=== PATIENT | female | born 1990 | race Asian ===

== ENCOUNTER 2016-12-14 20:41 | Emergency (ER) | payer SELFPAY ==
[~2016-12-14] VITALS: Ht 180.3 cm; Wt 93.9 kg
[2016-12-14 20:43] VITALS: BP 125/88
== END 2016-12-14 21:07 | disposition home or self-care (01) ==
LOC: ED 21:01
DX: S61.1 Open wound of thumb with damage to nail (principal); X58.XXXA Exposure to other specified factors, initial encounter; Y93.89 Activity, other specified; Y92.89 Other specified places as the place of occurrence of the external cause; Y99.8 Other external cause status
CPT/HCPCS: 99282

== ENCOUNTER 2017-08-07 13:21 | Emergency (ER) | payer OTHER ==
[~2017-08-07] VITALS: Ht 180.3 cm; Wt 100.8 kg
[2017-08-07 13:28] VITALS: BP 124/81
== END 2017-08-07 14:44 | disposition home or self-care (01) ==
LOC: ED 14:38
DX: B35.3 Tinea pedis (principal)
CPT/HCPCS: 99283

== ENCOUNTER 2018-01-25 22:48 | Emergency (ER) | payer SELFPAY ==
[~2018-01-25] VITALS: Ht 180.3 cm; Wt 101.7 kg
[2018-01-26 00:09] LABS: BASOPHILS # (AUTO) 0.02 x10^3/uL (0-0.1); BASOPHILS % (AUTO) 0 % (0-1); EOSINOPHILS # (AUTO) 0.11 x10^3/uL (0-0.4); EOSINOPHILS % (AUTO) 3 % (1-7); LYMPHOCYTES # (AUTO) 1.44 x10^3/uL (1-3.4); LYMPHOCYTES % (AUTO) 31 % (22-44); MD NO; MEAN CORPUSCULAR HEMOGLOBIN 30.3 pg (27.0-34.8); MEAN CORPUSCULAR HGB CONC 34.3 g/dL (32.4-35.8); MEAN CORPUSCULAR VOLUME 88.5 fL (80-100); MEAN PLATELET VOLUME 8.2 fL (7.4-10.4); MONOCYTES # (AUTO) 0.54 x10^3/uL (0.2-0.8); MONOCYTES % (AUTO) 12 % (2-9); NEUTROPHILS # (AUTO) 2.49 x10^3/uL (1.8-6.8); NEUTROPHILS % (AUTO) 54 % (42-75); PLATELET COUNT 218 x10^3/uL (130-400); RED BLOOD COUNT 4.36 x10^6/uL (3.82-5.3); RED CELL DISTRIBUTION WIDTH 12.9 % (9.6-15.2)
[2018-01-26 00:16] LABS: ALBUMIN 3.4 g/dL (3.4-5.0); ANION GAP 8 mmol/L (5-15); CALCIUM 8.5 mg/dL (8.5-10.1); CHLORIDE 108 mmol/L (98-107); CREATININE 0.96 mg/dL (0.55-1.02)
[2018-01-26 00:21] LABS: TROPONIN I < 0.015 ng/mL (0.000-0.045)
[2018-01-26 00:34] VITALS: BP 113/84
== END 2018-01-26 00:36 | disposition home or self-care (01) ==
LOC: ED 23:21
DX: R07.89 Other chest pain (principal); R55 Syncope and collapse
CPT/HCPCS: 36415; 71046; 80048; 82040; 84484; 84703; 85025; 93005; 99285

== ENCOUNTER 2018-07-03 18:40 | Emergency (ER) | payer SELFPAY ==
[~2018-07-03] VITALS: Ht 180.3 cm; Wt 108.3 kg
[2018-07-03] MEDS ORDERED: ACETAMINOPHEN 325 MG TABLET ONE (19:44)
[2018-07-03] MEDS ORDERED: ACETAMINOPHEN 325 MG TABLET PO ONE (20:00)
[2018-07-03 20:25] VITALS: BP 111/75
[2018-07-03 20:43] LABS: CULTURE INDICATED? YES; MICROSCOPIC INDICATED
== END 2018-07-03 21:14 | disposition home or self-care (01) ==
LOC: ED 20:13
DX: O26.892 Other specified pregnancy related conditions, second trimester (principal); Z3A.27 27 weeks gestation of pregnancy; S39.012A Strain of muscle, fascia and tendon of lower back, initial encounter; E11.40 Type 2 diabetes mellitus with diabetic neuropathy, unspecified; V49.49XA Driver injured in collision with other motor vehicles in traffic accident, initial encounter; Y93.89 Activity, other specified; Y99.8 Other external cause status; Y92.410 Unspecified street and highway as the place of occurrence of the external cause
CPT/HCPCS: 76815; 81001; 87086; 99285

== ENCOUNTER 2020-10-14 21:45 | Emergency (ER) | payer BC, MEDICAID ==
[~2020-10-14] VITALS: Ht 180.3 cm; Wt 100.8 kg
[2020-10-14 21:50] VITALS: BP 129/79
--- NOTE | 2020-10-14 22:04 | NUR ---
ERP at bedside.
[2020-10-14] MEDS ORDERED: AMOXICILLIN 500 MG CAPSULE ONE (22:06)
[2020-10-14] MEDS ORDERED: HYDROcodone/APAP 5/325 TABLET ONE (22:07)
--- NOTE | 2020-10-14 22:09 | NUR ---
Medicated per order. Waiting for dispo.
[2020-10-14] MEDS ORDERED: HYDROcodone/APAP 5/325 TABLET PO ONE (22:30)
[2020-10-14] MEDS ORDERED: AMOXICILLIN 500 MG CAPSULE PO ONE (22:30)
== END 2020-10-14 22:21 | disposition home or self-care (01) ==
LOC: ED 22:08
DX: K04.7 Periapical abscess without sinus (principal)
CPT/HCPCS: 99283